=== PATIENT | female | born 1965 | race Caucasian/White ===

== ENCOUNTER 2019-05-18 16:35 | Emergency (ER) | payer BC ==
[2019-05-18 16:43] VITALS: TEMP 98.2
--- NOTE | 2019-05-18 17:54 | ED ---
Eye Problem HPI - General Source: patient Mode of arrival: ambulatory Limitations: no limitations <Carley Tse - Last Filed: 05/18/19 20:34> <Mane Dove - Last Filed: 05/18/19 21:24> - General Chief complaint: Eye Problems Stated complaint: Left Eye Infection Time Seen by Provider: 05/18/19 17:08 - History of Present Illness Initial comments: 54-year-old female patient presents to the emergency department today for evaluation of double vision, left eye pain, and left lid drooping. Patient states on Monday she started with headache, facial pressure, and left eye pain. States that she did have several episodes of vomiting throughout the day with symptoms onset. The last 2 days the headache and pressure persisted but seemed to improve. States today she developed double vision to the left eye and the lid started to droop so she presented for further evaluation. Patient did see an computer systems integrator this morning he was concerned for sinus infection so they sent her to urgent care for antibiotics. Urgent care administered IM Rocephin and sent her here for further evaluation for possible cavernous sinus infection. Patient states she still has pain to the left eye but it is improved from . She reports double vision to the left eye, states images are stacked on top of each other. She states she has been chilled, but denies any fever. She denies any cough, congestion, or ear pain. Denies any numbness, tingling, or focal weakness to her extremities. Denies any history of similar symptoms. She does have glaucoma and states that her pressures have been improving since starting medication 6 months ago. Her patient care technician is Dr. Nickerson. Patient denies any recent rash, shortness breath, chest pain, abdominal pain, diarrhea, constipation, back pain, numbness, tingling, hematuria, dysuria, urinary urgency, urinary frequency, or any other complaints. (Carley Tse) - Related Data Allergies Allergy/AdvReac Type Severity Reaction Status Date / Time No Known Allergies Allergy Verified 05/18/19 16:37 Review of Systems ROS Other: All systems not noted in ROS Statement are negative. <Carley Tse - Last Filed: 05/18/19 20:34> ROS Other: All systems not noted in ROS Statement are negative. <Mane Dove - Last Filed: 05/18/19 21:24> ROS Statement: Those systems with pertinent positive or pertinent negative responses have been documented in the HPI. Past Medical History Past Medical History: Diabetes Mellitus, Hyperlipidemia, Hypertension Additional Past Medical History / Comment(s): glaucoma, History of Any Multi-Drug Resistant Organisms: None Reported Additional Past Surgical History / Comment(s): cataract Past Psychological History: No Psychological Hx Reported Smoking Status: Never smoker Past Alcohol Use History: None Reported Past Drug Use History: None Reported <Carley Tse - Last Filed: 05/18/19 20:34> General Exam Limitations: no limitations General appearance: alert, in no apparent distress, other (This is a well- developed, well-nourished adult female patient in no acute distress. Vital signs upon presentation are temperature 98.2F, pulse 78, respirations 18, blood pressure 216/99, pulse ox 100% on room air.) Eye exam: Present: EOMI, other (Left eye: Proptosis, left lid droop, pupil pinpoint and nonreactive, pressure 26mmHg. EOMI without increased pain or limitation. No conjunctival injection. Occasional tearing. Right eye: pressure 28mmHg. Otherwise normal exam.). Absent: scleral icterus, conjunctival injection, periorbital swelling ENT exam: Present: normal exam, normal oropharynx, mucous membranes moist, TM's normal bilaterally Neck exam: Present: normal inspection. Absent: tenderness, meningismus, lymphadenopathy Respiratory exam: Present: normal lung sounds bilaterally. Absent: respiratory distress, wheezes, rales, rhonchi, stridor Cardiovascular Exam: Present: regular rate, normal rhythm, normal heart sounds. Absent: systolic murmur, diastolic murmur, rubs, gallop, clicks GI/Abdominal exam: Present: soft, normal bowel sounds. Absent: distended, tenderness, guarding, rebound, rigid Neurological exam: Present: alert, oriented X3 Expanded Speech: Present: fluid speech Motor strength exam: RUE: 5, LUE: 5, RLE: 5, LLE: 5 Psychiatric exam: Present: normal affect, normal mood Skin exam: Present: warm, dry, intact, normal color. Absent: rash <Carley Tse - Last Filed: 05/18/19 20:34> Course <Mane Dove - Last Filed: 05/18/19 21:24> Vital Signs 05/18/19 05/18/19 05/18/19 16:38 16:43 18:04 Temperature 98.2 F Pulse Rate 78 75 Respiratory 18 200 H 20 Rate Blood Pressure 216/99 193/98 O2 Sat by Pulse 100 98 Oximetry 05/18/19 05/18/19 05/18/19 18:58 19:40 20:10 Temperature Pulse Rate 74 63 64 Respiratory 20 17 Rate Blood Pressure 213/87 178/80 146/75 O2 Sat by Pulse 100 99 100 Oximetry 05/18/19 20:40 Temperature Pulse Rate 65 Respiratory Rate Blood Pressure 168/84 O2 Sat by Pulse 100 Oximetry - Reevaluation(s) Reevaluation #1: 05/18/19 21:23 And P supervision: I personally evaluate this case and did discuss the findings. Patient will be transferred to [facility] for evaluation. I do agree with the assessment and plan (Mane Dove) Medical Decision Making - Lab Data Result diagrams: 05/18/19 18:00 05/18/19 18:00 - Radiology Data Radiology results: report reviewed, image reviewed <Carley Tse - Last Filed: 05/18/19 20:34> - Lab Data Result diagrams: 05/18/19 18:00 05/18/19 18:00 <Mane Dove - Last Filed: 05/18/19 21:24> - Medical Decision Making 54-year-old female patient presents to the emergency department today for evaluation of double vision, left eye drooping, and left eye pressure since Monday. Physical examination did reveal ptosis, exophthalmus, and left downward temporal eye deviation. CT orbits, brain, and angios [place] of [place] was obtained and were unremarkable. I did discuss the case with the on-call patient care technician who is concern for third nerve palsy, he is recommending MRA to rule out aneurysm. We do not have MRI or neurology available at this facility she'll be transferred to [facility]. Patient is agreeable with this plan. She is requesting to be transferred by private vehicle. (Carley Tse) - Lab Data Lab Results 05/18/19 05/18/19 05/18/19 Range/Units 18:00 18:00 18:00 WBC 10.9 H (3.8-10.6) k/uL RBC 4.71 (3.80-5.40) m/uL Hgb 13.1 (11.4-16.0) gm/dL Hct 40.6 (34.0-46.0) % MCV 86.2 (80.0-100.0) fL MCH 27.7 (25.0-35.0) pg MCHC 32.2 (31.0-37.0) g/dL RDW 13.0 (11.5-15.5) % Plt Count 578 H (150-450) k/uL Neutrophils % 69 % Lymphocytes % 24 % Monocytes % 3 % Eosinophils % 2 % Basophils % 1 % Neutrophils # 7.4 (1.3-7.7) k/uL Lymphocytes # 2.6 (1.0-4.8) k/uL Monocytes # 0.4 (0-1.0) k/uL Eosinophils # 0.2 (0-0.7) k/uL Basophils # 0.1 (0-0.2) k/uL PT 9.4 (9.0-12.0) sec INR 0.8 (<1.2) APTT 20.3 L (22.0-30.0) sec Sodium 144 (137-145) mmol/L Potassium 4.4 (3.5-5.1) mmol/L Chloride 105 (98-107) mmol/L Carbon Dioxide 29 (22-30) mmol/L Anion Gap 10 mmol/L BUN 25 H (7-17) mg/dL Creatinine 0.77 (0.52-1.04) mg/dL Est GFR (CKD-EPI)AfAm >90 (>60 ml/min/1.73 sqM) Est GFR (CKD-EPI)NonAf 87 (>60 ml/min/1.73 sqM) Glucose 140 H (74-99) mg/dL Calcium 10.5 H (8.4-10.2) mg/dL Total Bilirubin 0.3 (0.2-1.3) mg/dL AST 23 (14-36) U/L ALT 33 (9-52) U/L Alkaline Phosphatase 74 (38-126) U/L Total Protein 8.6 H (6.3-8.2) g/dL Albumin 4.9 (3.5-5.0) g/dL - Radiology Data CT brain without contrast was obtained. Report was reviewed in its entirety. Impression by Dr. Almeida shows negative computed tomography scan of the brain. CT orbits with contrast was obtained. Report was reviewed in its entirety. Impression by Dr. Almeida shows bilateral exophthalmus. Otherwise negative exam. No retro-orbital mass. CT angios [place] of [place] was obtained. Report was reviewed in its entirety. Impression by Dr. Almeida shows negative CT angiogram of the brain. (Carley Read) Disposition - Out of Hospital Transfer - Req. Specs Out of Hospital Transfer - Requested Specifics: Other Emergency Center ([facility]) <Carley Tse - Last Filed: 05/18/19 20:34> <Mane Dove - Last Filed: 05/18/19 21:24> Clinical Impression: Visual disturbance, Proptosis, Ptosis, left eyelid Disposition: OTHER INSTITUTION NOT DEFINED Condition: Serious Referrals: Carolina Doll MD [Primary Care Provider] - 1-2 days
[2019-05-18 18:14] LABS: Basophils # (A) 0.1 k/uL (0-0.2); Basophils % (A) 1 %; Eosinophils # (A) 0.2 k/uL (0-0.7); Eosinophils % (A) 2 %; HCT 40.6 % (34.0-46.0); HGB 13.1 gm/dL (11.4-16.0); Lymphocytes # (A) 2.6 k/uL (1.0-4.8); Lymphocytes % (A) 24 %; MCH 27.7 pg (25.0-35.0); MCHC 32.2 g/dL (31.0-37.0); MCV 86.2 fL (80.0-100.0); Monocytes # (A) 0.4 k/uL (0-1.0); Monocytes % (A) 3 %; Neutrophils # (A) 7.4 k/uL (1.3-7.7); Neutrophils % (A) 69 %; Platelet Count 578 k/uL (150-450); RBC 4.71 m/uL (3.80-5.40); WBC 10.9 k/uL (3.8-10.6)
[2019-05-18 18:26] LABS: ALT 33 U/L (9-52); AST 23 U/L (14-36); African American GFR (CKD) >90 (>60 ml/min/1.73 sqM); Albumin 4.9 g/dL (3.5-5.0); Alkaline Phosphatase 74 U/L (38-126); Anion Gap 10 mmol/L; Blood Urea Nitrogen 25 mg/dL (7-17); Calcium 10.5 mg/dL (8.4-10.2); Carbon Dioxide 29 mmol/L (22-30); Chloride 105 mmol/L (98-107); Glucose 140 mg/dL (74-99); Non-African American GFR(CKD) 87 (>60 ml/min/1.73 sqM); Potassium 4.4 mmol/L (3.5-5.1); Sodium 144 mmol/L (137-145); Total Bilirubin 0.3 mg/dL (0.2-1.3); Total Protein 8.6 g/dL (6.3-8.2)
[2019-05-18 18:38] LABS: INR 0.8 (<1.2); Partial Thromboplastin Time 20.3 sec (22.0-30.0); Prothrombin Time 9.4 sec (9.0-12.0)
[2019-05-18] MEDS ORDERED: SODIUM CHLORIDE 0.9% 1,000 ML IV ONE (18:43)
[2019-05-18] MEDS ORDERED: ONDANSETRON 4 MG/2 ML VIAL IVP STA (18:52)
[2019-05-18] MEDS ORDERED: HYDROmorphone 1 MG/ML 1 ML SYRINGE IM STA (19:03)
[2019-05-18] MEDS ORDERED: ENALAPRILAT 1.25 MG/ML 1 ML VIAL IVP STA (19:04)
--- NOTE | 2019-05-18 19:35 | CT ---
EXAMINATION TYPE: CT brain wo con DATE OF EXAM: 05/18/2019 COMPARISON: None HISTORY: Double vision CT DLP: Double vision, proptosis, left eye lid droop. mGycm Automated exposure control for dose reduction was used. FINDINGS: Ventricles have normal size. There is no mass effect nor midline shift. There is no sign of intracran ial hemorrhage. The calvarium is intact. IMPRESSION: NEGATIVE CT SCAN OF THE BRAIN.
--- NOTE | 2019-05-18 19:39 | CT ---
EXAMINATION TYPE: CT orbits w con DATE OF EXAM: 05/18/2019 COMPARISON: None HISTORY: Double vision, proptosis, left eye lid droop. CT DLP: 262.7 mGycm Automated exposure control for dose reduction was used. CONTRAST: Performed with IV Contrast, patient injected with 65 mL of Isovue 370. FINDINGS: The orbital margins are intact. There is no evidence of retro-orbital mass. I see no pathologic enhan cement. There is no evidence of a blowout fracture. Maxilla is intact. There is normal aeration of th e ethmoid and maxillary sinuses. Frontal sinuses appear normal. There is no pathologic enhancement. T he globes are fairly symmetric. There is mild bilateral exophthalmus. IMPRESSION: BILATERAL EXOPHTHALMOS. OTHERWISE NEGATIVE EXAM. NO RETRO-ORBITAL MASS.
--- NOTE | 2019-05-18 19:42 | CT ---
EXAMINATION TYPE: CT angio COW [place] DATE OF EXAM: 05/18/2019 7:17 PM COMPARISON: HISTORY: Double vision, proptosis, left eye lid droop. CT DLP: 926.8 mGycm Automated exposure control for dose reduction was used. TECHNIQUE: Performed with IV Contrast, patient injected with 65 mL of Isovue 370. . FINDINGS: There are 3-D post processed images. There is arterial flow in the anterior middle and posterior cere bral arteries. There is arterial flow in the vertebrobasilar artery system. The left posterior cerebr al artery appears to fill entirely through the left posterior communicating artery. There is bilatera l arterial flow in both distal vertebral arteries. There is arterial flow in both distal internal car otid arteries. There is no mass effect. There is no evidence of intracranial aneurysm or neovascularity. There is normal contrast opacification of the venous sinuses. IMPRESSION: NEGATIVE CT ANGIOGRAM OF THE BRAIN.
[2019-05-18 19:48] VITALS: RESP 17
[2019-05-18 20:49] VITALS: BP 168/84; PULSE 65
== END 2019-05-18 21:50 | disposition other institution (70) ==
LOC: EC 16:35
DX: H05.20 Unspecified exophthalmos (principal); H02.402 Unspecified ptosis of left eyelid; H53.9 Unspecified visual disturbance; E11.39 Type 2 diabetes mellitus with other diabetic ophthalmic complication; H42 Glaucoma in diseases classified elsewhere
CPT/HCPCS: 36415; 80053; 85025; 85610; 85730; 70496; 70450; 70481; 99284; 96374; 96375; 96361; J2405; Q9967

== ENCOUNTER → 2019-07-16 | Day surgery (SDC) | payer BC ==
[2019-07-11 15:32] VITALS: BMI 27.4
[~2019-07-16] MED LIST: LIDOCAINE 1% INJ 10MG/ML (20 ML MDV) ONE; LIDOCAINE 1% INJ 10MG/ML (20 ML MDV) SQ ONE
[2019-07-16 08:28] LABS: Glucose,Whole Blood 105 mg/dL (75-99)
[2019-07-16 08:32] VITALS: PULSE 71; RESP 18; TEMP 98
[2019-07-16 10:16] VITALS: BP 149/79
--- NOTE | 2019-07-16 15:07 | IR ---
EXAMINATION TYPE: IR cvc insert >=5 years DATE OF EXAM: 07/16/2019 COMPARISON: NONE CLINICAL HISTORY: Infection Needs long-term intravenous access for antibiotics. PROCEDURE: After informed consent, the skin overlying the left brachial vein was localized with ultrasound and n oted to be compressible and patent. An ultrasound image was obtained and submitted on the patient's chart. The overlying skin was prepped and draped and Lidocaine was used for local anesthesia. A ski n landy was made with a scalpel. Access was gained to the vein under ultrasound guidance with a 21 ga uge needle and a 0.018 inch wire was advanced. Access site was dilated with Peel-Away sheath and cat heter tailored to the appropriate length and advanced such that the distal tip is at the cavoatrial j unction. Spot image was obtained verifying placement. Catheter was fixed to the and a sterile dres sing was placed following hemostasis. Catheter was aspirated and flushed with saline. Patient was d ischarged in stable condition without complication.Maximal barrier technique is utilized. Ultrasound image is documented on the chart. Ultrasound used with sterile technique. Fluoro time and fluoroscopic images submitted to document procedure: 0.1 minutes fluoroscopy time, 18 intraoperative images document the procedure IMPRESSION: STATUS POST ULTRASOUND AND FLUOROSCOPIC GUIDED PICC LINE PLACEMENT, READY FOR USE. THIS PROCEDURE WAS PERFORMED BY THE UNDERSIGNED.
== END ==
LOC: CATHCVL 07:51
PROVIDERS: ATTEND Radiology Diagnostic Radiology
DX: Z45.2 Encounter for adjustment and management of vascular access device (principal); E11.69 Type 2 diabetes mellitus with other specified complication; M86.9 Osteomyelitis, unspecified; E78.00 Pure hypercholesterolemia, unspecified; Z79.84 Long term (current) use of oral hypoglycemic drugs; Z79.899 Other long term (current) drug therapy
CPT/HCPCS: 36573; 82565; 84520; C1751; C1769; J2001